=== PATIENT | female | born 1980 | race African-American/Black ===

== ENCOUNTER 2016-12-30 08:51 | Emergency (ER) | payer MEDICAID ==
[~2016-12-30] VITALS: Ht 160 cm; Wt 59.0 kg
[~2016-12-30 08:51] MED LIST: ALBUTEROL SULF8.5 GM INH; AZITHROMYCIN250 MG ORAL; CIPROFLOXACIN500 M2 ORAL; IBUPROFEN600 MG ORAL; NKM; PREDNISONE20 MG ORAL; ROBAXIN500 MG PO; TRAMADOL HCL50 MG ORAL; TYLENOL EXTRA500 MG ORAL
[2016-12-30 09:04] VITALS: BP 113/77
[2016-12-30] MEDS ORDERED: AMOXICILLIN500 MG ORAL (09:12)
[2016-12-30] MEDS ORDERED: IBUPROFEN600 MG ORAL (09:12)
[2016-12-30 09:25] VITALS: BP 113/77
--- NOTE | 2016-12-31 15:17 | Emergency Room Report ---
History of Present Illness General Chief Complaint: Pain Source: Patient Present Illness HPI 36-year-old female presents ED complaining of right-sided mouth pain x 3 days. Denies fevers or chills. Pain is throbbing, 9/10, nonradiating. No other aggravating or relieving factors. Denies any throat pain. Denies cough. No other aggravating or relieving factors. Denies any other associated symptoms Allergies: Coded Allergies: No Known Allergies (Unverified , 12/26/14) Patient History Past Medical History: none Past Surgical History: none Pertinent Family History: none Social History: Denies: alcohol use, drug use, smoking Last Menstrual Period: 11/30/16 Now: No Immunizations: UTD Reviewed Nursing Documentation: PMH: Agreed, PSxH: Agreed Nursing Documentation-PMH Past Medical History: No Stated History Review of Systems All Other Systems: negative except mentioned in HPI Physical Exam Vital Signs Date Time Temp Pulse Resp B/P Pulse Ox O2 Delivery O2 Flow Rate FiO2 12/30/16 08:56 98.1 76 16 113/77 97 Room Air Sp02 EP Interpretation: reviewed, normal General Appearance: no apparent distress, alert, GCS 15, non-toxic Head: normocephalic Eyes: bilateral eye PERRL, bilateral eye normal inspection ENT: hearing grossly normal, no angioedema, normal voice, other - R lower gumline inflammation/swelling Neck: full range of motion, supple/symm/no masses Respiratory: normal inspection Cardiovascular #1: normal inspection Gastrointestinal: normal inspection Rectal: deferred Genitourinary: no CVA tenderness Musculoskeletal: normal inspection Neurologic: alert, oriented x3, responsive, motor strength/tone normal, sensory intact, speech normal Psychiatric: normal inspection Skin: normal inspection Lymphatic: normal inspection Medical Decision Making Diagnostic Impression: Primary Impression: Pain in gums ER Course 36-year-old female presents ED complaining of R sided oral pain. Cracked tooth, dental abscess, cavity Patient placed on stretcher. After initial history, physical exam reveals a young female in mild distress. There is inflammation and swelling to the right lower gumline. No evidence of a tooth abscess. No discharge. Given motrin in ED with pain improved. Diagnosis- pain in gums Stable and discharged to home prescription for Motrin and amoxicillin. Instructed to see dentist as a walk-in this week. Return to ED if symptoms recur or worse Last Vital Signs Date Time Temp Pulse Resp B/P Pulse Ox O2 Delivery O2 Flow Rate FiO2 12/30/16 09:26 98.1 12/30/16 09:25 76 16 113/77 97 Room Air Status: improved Disposition: HOME, SELF-CARE Condition: Stable Scripts Ibuprofen* (MOTRIN*) 600 Mg Tablet 600 MG ORAL Q8H Y for For Pain, #30 TAB 0 Refills Prov: LILLY INMAN M.D. 12/30/16 Amoxicillin* (AMOXIL*) 500 Mg Capsule 500 MG ORAL THREE TIMES A DAY, #21 CAP Prov: LILLY INMAN M.D. 12/30/16 Referrals: [facility] (PCP) Patient Instructions: Gingivitis, [id number] LILLY INMAN M.D. Dec 31, 2016 15:17
== END 2016-12-30 09:30 | disposition home or self-care (01) ==
LOC: EMR 09:15
DX: K13.79 Other lesions of oral mucosa (principal)
CPT/HCPCS: 99284

== ENCOUNTER 2017-04-20 21:36 | Emergency (ER) | payer MEDICAID ==
[~2017-04-20] VITALS: Ht 160 cm; Wt 54.9 kg
[~2017-04-20 21:36] MED LIST changes: +AMOXICILLIN500 MG ORAL
[2017-04-20 21:50] VITALS: BP 153/86
[2017-04-20] MEDS ORDERED: Ketorolac 30mg Inj IV ONE (22:00)
[2017-04-20 22:25] LABS: APPEARANCE,URINE CLEAR; KETONES,URINE NEGATIVE (NEGATIVE); LEUKOCYTE ESTERASE ,URINE 1+ (NEGATIVE); NITRITE,URINE NEGATIVE (NEGATIVE); PH,URINE 8 (4.5-8.0); PROTEIN,URINE NEGATIVE (NEGATIVE); UROBILINOGEN,URINE 4 MG/DL (0.0-1.0)
[2017-04-20 22:31] LABS: BASOPHILS % (AUTO) 1.2 % (0.0-2.0); EOSINOPHILS % (AUTO) 2.8 % (0.0-3.0); LYMPHOCYTES % (AUTO) 9.4 % (20.0-45.0); MEAN CORPUSCULAR HEMOGLOBIN 31.5 PG (27.0-31.0); MEAN CORPUSCULAR HGB CONC 33.4 G/DL (32.0-36.0); MEAN CORPUSCULAR VOLUME 94 FL (80-99); MEAN PLATELET VOLUME 9.1 FL (6.5-10.1); MONOCYTES % (AUTO) 4.9 % (1.0-10.0); NEUTROPHILS % (AUTO) 81.7 % (45.0-75.0); PLATELET COUNT 175 K/UL (150-450); RED BLOOD COUNT 4.46 M/UL (4.20-5.40); RED CELL DISTRIBUTION WIDTH 12.5 % (11.6-14.8); WHITE BLOOD COUNT 9.5 K/UL (4.8-10.8)
[2017-04-20 22:34] LABS: RBC,URINE 0-2 /HPF (0 - 2)
[2017-04-20 22:35] LABS: BACTERIA,URINE FEW /HPF; SQUAMOUS EPITHELIAL CELL,UR FEW /LPF (NONE/OCC)
[2017-04-20 22:42] LABS: ANION GAP 9 (5-15); CALCIUM 10.1 mg/dL (8.6-10.2); CARBON DIOXIDE 27 mEQ/L (20-30); CHLORIDE 104 mEQ/L (98-107); CREATININE 0.9 mg/dL (0.5-0.9); GLOMERULAR FILTRATION RATE > 60 mL/min (>60); HEMOLYSIS 6; POTASSIUM 4.3 mEQ/L (3.4-4.9); SODIUM 140 mEQ/L (135-145)
[2017-04-20] MEDS ORDERED: IBUPROFEN600 MG ORAL (23:04)
--- NOTE | 2017-04-20 23:04 | Emergency Room Report ---
History of Present Illness General Chief Complaint: Chest Pain Source: Patient Present Illness HPI Is a 37-year-old female with no past medical history. She presents with chief complaint of body pain, chest pain, tightness. Subjective fever chills. Onset today. Slight congestion. No cough. No dysuria or frequency. No abdominal pain. Has not anything for this. Allergies: Coded Allergies: No Known Allergies (Unverified , 04/20/17) Patient History Past Medical History: none, see triage record, old chart reviewed Past Surgical History: none Pertinent Family History: none Social History: Denies: smoking Last Menstrual Period: last week Now: No Immunizations: other Reviewed Nursing Documentation: PMH: Agreed, PSxH: Agreed Nursing Documentation-PMH Past Medical History: No History, Except For Hx Hypertension: Yes Review of Systems Constitutional: Reports: chills, fever, malaise Eye: Denies: blurred vision, eye pain ENT: Denies: ear pain, nose congestion, throat swelling Respiratory: Denies: cough, shortness of breath Cardiovascular: Reports: chest pain, Denies: palpitations Gastrointestinal: Denies: abdominal pain, diarrhea, nausea, vomiting Musculoskeletal: Denies: back pain, joint pain Skin: Denies: rash Neurological: Denies: headache, numbness Endocrine: Denies: increased thirst, increased urine Hematologic/Lymphatic: Denies: easy bruising All Other Systems: negative except mentioned in HPI Physical Exam Vital Signs Date Time Temp Pulse Resp B/P Pulse Ox O2 Delivery O2 Flow Rate FiO2 04/20/17 21:39 100.2 95 18 166/91 98 Room Air vitals with fever Sp02 EP Interpretation: reviewed, normal General Appearance: well appearing, no apparent distress, alert Head: normocephalic, atraumatic Eyes: bilateral eye EOMI, bilateral eye PERRL ENT: hearing grossly normal, normal pharynx Neck: full range of motion, supple, no meningismus Respiratory: chest non-tender, lungs clear, normal breath sounds Cardiovascular #1: regular rate, rhythm, no murmur Gastrointestinal: normal bowel sounds, non tender, no mass, no organomegaly, no bruit, non-distended Musculoskeletal: back normal, gait/station normal, normal range of motion Psychiatric: mood/affect normal Skin: warm/dry Medical Decision Making Diagnostic Impression: Primary Impression: Upper respiratory infection Qualified Codes: J06.9 - Acute upper respiratory infection, unspecified; B97.89 - Other viral agents as the cause of diseases classified elsewhere ER Course Patient presents with fever and chest tightness. She's now having congestion and runny nose. This is an early viral illness. No evidence of bacterial infection. Urine is most likely normal. We'll wait for culture before treatment. She fell better now. We will discharge home. Chest X-Ray Diagnostic Results Chest X-Ray Diagnostic Results : Chest X-Ray Ordered: Yes # of Views/Limited/Complete: 1 View Indication: Shortness of Breath EP Interpretation: Yes Interpretation: no consolidation, no effusion, no pneumothorax, no acute cardiopulmonary disease Impression: No acute disease Interpreting ER Provider: Electronically signed by Azam Jacobson MD Last Vital Signs Date Time Temp Pulse Resp B/P Pulse Ox O2 Delivery O2 Flow Rate FiO2 04/20/17 21:50 99.7 92 13 153/86 100 Room Air Status: improved Disposition: HOME, SELF-CARE Condition: Stable Scripts Ibuprofen* (MOTRIN*) 600 Mg Tablet 600 MG ORAL THREE TIMES A DAY, #30 TAB 0 Refills Prov: AZAM JACOBSON M.D. 04/20/17 Referrals: [facility] (PCP) Additional Instructions: Followup with your DrToan in 7 days. Return if symptom worsen. AZAM JACOBSON M.D. Apr 20, 2017 23:04
[2017-04-20 23:10] VITALS: BP 136/76
[2017-04-20 23:15] VITALS: BP 136/76
--- NOTE | 2017-04-21 10:05 | Diagnostic Imaging Report ---
Indication: Chest pain Technique: One view of the chest Comparison: none Findings: Lungs and pleural spaces are clear. Heart size is normal. Impression: No acute process
--- NOTE | 2017-04-21 14:41 | Cardiology Report ---
APPROVED REPORT EKG Measurement Heart [id number] Normal sinus rhythm Normal ECG
== END 2017-04-20 23:15 | disposition home or self-care (01) ==
LOC: EMR 22:17
DX: J06.9 Acute upper respiratory infection, unspecified (principal); I10 Essential (primary) hypertension
CPT/HCPCS: 36415; 71010; 80048; 81001; 81025; 85025; 93005; 96360; 96374; 99284; J1885

== ENCOUNTER 2017-07-16 08:55 | Emergency (ER) | payer MEDICAID ==
[~2017-07-16] VITALS: Ht 160 cm; Wt 57.2 kg
[2017-07-16] MEDS ORDERED: HYDROCORTISONE-30 GM TOPIC (09:11)
[2017-07-16] MEDS ORDERED: BENADRYL25 M3 PO (09:12)
[2017-07-16 09:20] VITALS: BP 136/67
[2017-07-16 09:48] VITALS: BP 136/67
--- NOTE | 2017-07-16 14:05 | Emergency Room Report ---
History of Present Illness General Chief Complaint: Skin Rash/Abscess Source: Patient Present Illness HPI 37-year-old female no significant past medical history presenting with itchy rash to abdomen. Patient states that she first noticed the rash 4 days ago, was scratching it, put Neosporin on it without relief. no New detergent, no insect bites, no rash elsewhere on body Allergies: Coded Allergies: No Known Allergies (Unverified , 04/20/17) Patient History Past Medical History: see triage record Past Surgical History: none Pertinent Family History: none Last Menstrual Period: 05/11/17 Reviewed Nursing Documentation: PMH: Agreed, PSxH: Agreed Nursing Documentation-PMH Past Medical History: No Stated History Hx Hypertension: Yes Review of Systems All Other Systems: negative except mentioned in HPI Physical Exam Vital Signs Date Time Temp Pulse Resp B/P (MAP) Pulse Ox O2 Delivery O2 Flow Rate FiO2 07/16/17 08:59 97.9 83 16 136/67 100 Room Air Sp02 EP Interpretation: reviewed, normal General Appearance: normal inspection, well appearing, no apparent distress, alert, GCS 15, non-toxic Head: normocephalic, atraumatic Eyes: bilateral eye normal inspection, bilateral eye PERRL, bilateral eye EOMI ENT: normal ENT inspection, normal pharynx, normal voice, moist mucus membranes Neck: normal inspection, full range of motion, supple Respiratory: normal inspection, lungs clear, normal breath sounds, no respiratory distress, no retraction, no wheezing, speaking full sentences, chest symmetrical Cardiovascular #1: normal inspection, regular rate, rhythm, no edema, normal capillary refill Cardiovascular #2: 2+ radial (R), 2+ radial (L) Gastrointestinal: normal inspection, non tender, soft, non-distended, no guarding Musculoskeletal: normal inspection, back normal, normal range of motion, non- tender Neurologic: normal inspection, alert, oriented x3, responsive, motor strength/ tone normal, sensory intact, normal gait, speech normal Psychiatric: normal inspection, judgement/insight normal, memory normal Skin: warm/dry, well hydrated, normal turgor, other - erythematous rash noted on abdomen, 2 x 2 centimeters, with excoriation huang, no surrounding cellulitis Medical Decision Making Diagnostic Impression: Primary Impression: Rash and other nonspecific skin eruption ER Course 37-year-old female with rash on abdomen for 4 days DDX: allergic reaction vs. eczema vs. contact dermatitis vs. viral exanthem vs cellulitis Other serious diagnosis such as TSS, meningococcemia, SJS/TEN, DRESS, necrotizing fasiitis are unlikely in this case given benign history/physical Plan: None emergency room ER course: Patient has remained stable in ED Disposition: Patient will be discharged to home. Patient given prescription of her cortisone cream and Benadryl. Strict return precautions discussed with patient such as fever, chills, rapid spread of rash, chest pain, sob, throat swelling, n/v/d. Patient is to follow up with their PMD within 5 days. Patient verbalized understanding and agrees with plan. Please note that this Emergency Department Report was dictated using [employer] processing technologist technology software, occasionally this can lead to erroneous entry secondary to interpretation by the dictation equipment Last Vital Signs Date Time Temp Pulse Resp B/P (MAP) Pulse Ox O2 Delivery O2 Flow Rate FiO2 07/16/17 09:48 97.9 16 136/67 100 Room Air 07/16/17 08:59 83 Disposition: HOME, SELF-CARE Condition: Stable Scripts Diphenhydramine HCl (Benadryl) 25 Mg Capsule 25 MG PO Q6H, #30 CAP 0 Refills Prov: Abel Moran M.D. 07/16/17 Hydrocortisone/Aloe Vera 1%* (HYDROCORTISONE-ALOE 1% CREAM*) Y Cr 1 APPLIC TOPIC Q6H Y for Itching for 14 Days, #30 GM 0 Refills Prov: Abel Moran M.D. 07/16/17 Referrals: [facility] ([facility]P) Patient Instructions: Rash Additional Instructions: Please followup with her private doctor in one week without fail Abel Moran M.D. Jul 16, 2017 14:05
== END 2017-07-16 09:50 | disposition home or self-care (01) ==
LOC: EMR 09:22
DX: R21 Rash and other nonspecific skin eruption (principal); I10 Essential (primary) hypertension
CPT/HCPCS: 99284

== ENCOUNTER 2017-09-25 15:55 | Emergency (ER) | payer MEDICAID ==
[~2017-09-25] VITALS: Ht 160 cm; Wt 52.2 kg
[~2017-09-25 15:55] MED LIST changes: +BENADRYL25 M3 PO; +HYDROCORTISONE-30 GM TOPIC
[2017-09-25 16:01] VITALS: BP 119/75
[2017-09-25] MEDS ORDERED: ALBUTEROL SULF8.5 GM INH (16:58)
[2017-09-25] MEDS ORDERED: PREDNISONE20 MG ORAL (16:58)
[2017-09-25] MEDS ORDERED: PROMETHAZINE-C118 M1 ORAL (16:58)
[2017-09-25 17:05] VITALS: BP 118/68
--- NOTE | 2017-09-25 23:35 | Emergency Room Report ---
History of Present Illness General Chief Complaint: General Complaint Source: Patient Present Illness HPI 37-year-old female presents ED complaining of cough and weakness x2 days. Cough is dry. Patient states she has history of bronchitis. Denies fevers or chills. Denies chest pain. No other aggravating or leading factors. Denies any other associated symptom Allergies: Coded Allergies: No Known Allergies (Unverified , 04/20/17) Patient History Past Medical History: HTN Past Surgical History: none Pertinent Family History: none Social History: Denies: smoking, alcohol use, drug use Last Menstrual Period: 08/02/17 Now: No Immunizations: UTD Reviewed Nursing Documentation: PMH: Agreed, PSxH: Agreed Nursing Documentation-PMH Past Medical History: No Stated History Hx Hypertension: Yes Review of Systems All Other Systems: negative except mentioned in HPI Physical Exam Vital Signs Date Time Temp Pulse Resp B/P (MAP) Pulse Ox O2 Delivery O2 Flow Rate FiO2 09/25/17 16:01 98.4 108 20 119/75 97 Room Air Sp02 EP Interpretation: reviewed, normal General Appearance: no apparent distress, alert, GCS 15, non-toxic Head: normocephalic, atraumatic Eyes: bilateral eye normal inspection, bilateral eye PERRL ENT: hearing grossly normal, normal pharynx, no angioedema, normal voice Neck: full range of motion, supple/symm/no masses Respiratory: chest non-tender, lungs clear, normal breath sounds, speaking full sentences Cardiovascular #1: regular rate, rhythm, no edema Cardiovascular #2: 2+ carotid (R), 2+ carotid (L), 2+ radial (R), 2+ radial (L) , 2+ dorsalis pedis (R), 2+ dorsalis pedis (L) Gastrointestinal: normal bowel sounds, non tender, soft, non-distended, no guarding, no rebound Rectal: deferred Genitourinary: normal inspection, no CVA tenderness Musculoskeletal: back normal, gait/station normal, normal range of motion, non- tender Neurologic: alert, oriented x3, responsive, motor strength/tone normal, sensory intact, speech normal Psychiatric: judgement/insight normal, memory normal, mood/affect normal, no suicidal/homicidal ideation Reflexes: 3+ bicep (R), 3+ bicep (L), 3+ tricep (R), 3+ tricep (L), 3+ knee (R) , 3+ knee (L) Skin: normal color, no rash, warm/dry, well hydrated Lymphatic: no adenopathy Medical Decision Making Diagnostic Impression: Primary Impression: Bronchitis with bronchospasm ER Course Hospital Course 37-year-old female presents to ED complaining of cough, weakness Differential diagnoses include: URI, pharyngitis, otitis media, asthma Clinical course Patient placed on stretcher. After initial history, physical exam reveals a female in no acute distress. Bilateral TM unremarkable. No pharyngeal erythema. No tonsillar exudates. No lymphadenopathy. lungs clear. abdomen soft. Clinical findings consistent with bronchitis. Reassurance given. treatment is supportive therapy Diagnosis - bronchitis Stable and discharged home with Rx promethazine/codeine, albuterol, prednisone. Instructed to followup with PMD. Return to ED if symptoms recur or worsen Last Vital Signs Date Time Temp Pulse Resp B/P (MAP) Pulse Ox O2 Delivery O2 Flow Rate FiO2 09/25/17 17:05 78 18 118/68 99 Room Air 09/25/17 16:01 98.4 Status: improved Disposition: HOME, SELF-CARE Condition: Stable Scripts Codeine/Promethazine Hcl* (PROMETHAZINE-CODEINE SYRUP*) 118 Ml Syrup 5 ML ORAL Q6H Y for For Cough, #118 ML 0 Refills Prov: LILLY INMAN M.D. 09/25/17 Prednisone* (PREDNISONE*) 20 Mg Tablet 40 MG ORAL DAILY for 5 Days, TAB Prov: LILLY INMAN M.D. 09/25/17 Albuterol Sulfate* (ALBUTEROL SULFATE MDI*) 8.5 Gm Hfa.aer.ad 2 PUFF INH Q6H, #1 EA 0 Refills Prov: LILLY INMAN M.D. 09/25/17 Referrals: [facility] (PCP) Patient Instructions: Acute Bronchitis, [id number] LILLY INMAN M.D. Sep 25, 2017 23:35
== END 2017-09-25 17:06 | disposition home or self-care (01) ==
LOC: EMR 16:38
DX: J40 Bronchitis, not specified as acute or chronic (principal); R53.1 Weakness; I10 Essential (primary) hypertension
CPT/HCPCS: 99284

== ENCOUNTER 2018-02-10 02:53 | Emergency (ER) | payer MEDICAID ==
[~2018-02-10] VITALS: Ht 160 cm; Wt 54.9 kg
[~2018-02-10 02:53] MED LIST changes: +PROMETHAZINE-C118 M1 ORAL
[2018-02-10 03:15] VITALS: BP 138/80
[2018-02-10] MEDS ORDERED: Mylanta II UD 30ml ORAL ONE (03:15)
[2018-02-10 03:16] LABS: APPEARANCE,URINE CLEAR; BILIRUBIN, URINE NEGATIVE (NEGATIVE); GLUCOSE, URINE (UA) NEGATIVE (NEGATIVE); KETONES,URINE NEGATIVE (NEGATIVE); LEUKOCYTE ESTERASE ,URINE 1+ (NEGATIVE); NITRITE,URINE NEGATIVE (NEGATIVE); PH,URINE 5 (4.5-8.0); PROTEIN,URINE 2+ (NEGATIVE); UROBILINOGEN,URINE 1 MG/DL (0.0-1.0)
[2018-02-10 03:20] LABS: COLOR,URINE YELLOW
[2018-02-10] MEDS ORDERED: Sodium Chloride 500ML 500 ML IV ONE (03:43)
[2018-02-10] MEDS ORDERED: Isovue-300 100ml vial INJ PRN (03:45)
[2018-02-10] MEDS ORDERED: Morphine Sulfate 4mg/ml Inj IVP ONE (03:45)
--- NOTE | 2018-02-10 03:50 | Emergency Room Report ---
History of Present Illness General Chief Complaint: Abdominal Pain Source: Patient Present Illness HPI 2-year-old female no medical problems no surgeries, reports lower abdominal pain for 7 days, with constipation, no fever, no nausea no vomiting, pain is crampy and intermittent, but constant all day today Denies urinary symptoms denies gynecologic problems Has tried a suppository as well as prune juice and stool softeners without relief Allergies: Coded Allergies: No Known Allergies (Unverified , 04/20/17) Patient History Past Medical History: see triage record Last Menstrual Period: Last month Now: No Reviewed Nursing Documentation: PMH: Agreed; PSxH: Agreed Nursing Documentation-PMH Hx Hypertension: Yes Review of Systems All Other Systems: negative except mentioned in HPI Physical Exam Vital Signs Date Time Temp Pulse Resp B/P (MAP) Pulse Ox O2 Delivery O2 Flow Rate FiO2 02/10/18 02:56 98.0 75 18 141/88 98 Room Air 98.1 Sp02 EP Interpretation: reviewed, normal General Appearance: no apparent distress, alert, non-toxic Head: normocephalic Eyes: bilateral eye normal inspection, bilateral eye PERRL, bilateral eye EOMI ENT: normal ENT inspection, hearing grossly normal, normal pharynx, no angioedema, normal voice, moist mucus membranes Neck: normal inspection, full range of motion, supple, supple/symm/no masses Respiratory: chest non-tender, lungs clear, normal breath sounds, chest symmetrical, palpation of chest normal Cardiovascular #1: normal peripheral pulses, regular rate, rhythm Cardiovascular #2: 2+ radial (R), 2+ radial (L) Gastrointestinal: normal inspection, soft, no mass, no guarding, no rebound, tenderness - Positive McBurney's point right lower quadrant tenderness Rectal: deferred Genitourinary: normal inspection, no CVA tenderness Musculoskeletal: back normal, gait/station normal, normal range of motion, non- tender, no calf tenderness Neurologic: alert, responsive, wig sales consultant III-XII nml as tested, motor strength/tone normal, sensory intact, speech normal Psychiatric: judgement/insight normal, memory normal, mood/affect normal Skin: normal color, no rash, warm/dry, normal turgor Lymphatic: no adenopathy Medical Decision Making Diagnostic Impression: Primary Impression: Abdominal pain ER Course Patient has had an unremarkable workup, pain for one week intermittently, do not suspect anything concerning in terms of gynecologic pathology, she was discharged with a prescription for Bentyl to take as needed for pain as well as MiraLAX to add to her bowel regimen CT/MRI/US Diagnostic Results CT/MRI/US Diagnostic Results : Imaging Test Ordered: ct abd/pelvis Impression CT scan showed normal appendix, no obstruction, no free air, fat-containing umbilical hernia Last Vital Signs Date Time Temp Pulse Resp B/P (MAP) Pulse Ox O2 Delivery O2 Flow Rate FiO2 02/10/18 03:15 98.0 18 138/80 98 Room Air 98.0 02/10/18 02:56 75 Status: improved Disposition: HOME, SELF-CARE Condition: Stable Referrals: [facility] (PCP) JULIA DEVRIES M.D February 10, 2018 03:50
[2018-02-10 04:02] LABS: EOSINOPHILS % (AUTO) 3.5 % (0.0-3.0); HEMATOCRIT 43.5 % (37.0-47.0); HEMOGLOBIN 14.3 G/DL (12.0-16.0); LYMPHOCYTES % (AUTO) 23.4 % (20.0-45.0); MEAN CORPUSCULAR VOLUME 88 FL (80-99); MONOCYTES % (AUTO) 4.8 % (1.0-10.0); NEUTROPHILS % (AUTO) 67.2 % (45.0-75.0); PLATELET COUNT 207 K/UL (150-450); RED BLOOD COUNT 4.92 M/UL (4.20-5.40); WHITE BLOOD COUNT 11.1 K/UL (4.8-10.8)
[2018-02-10 04:06] LABS: ANION GAP 10 mmol/L (5-15); BLOOD UREA NITROGEN 12 mg/dL (7-18); CALCIUM 9.4 MG/DL (8.5-10.1); CARBON DIOXIDE 26 MMOL/L (21-32); CHLORIDE 106 MMOL/L (98-107); CREATININE 0.9 MG/DL (0.55-1.30); POTASSIUM 3.6 MMOL/L (3.5-5.1); SODIUM 142 MMOL/L (136-145)
[2018-02-10 04:11] LABS: ALANINE AMINOTRANSFERASE 21 U/L (12-78); ALBUMIN 3.5 G/DL (3.4-5.0); ALKALINE PHOSPHATASE 94 U/L (46-116); ASPARTATE AMINO TRANSFERASE 13 U/L (15-37); BILIRUBIN,TOTAL 0.3 MG/DL (0.2-1.0)
[2018-02-10 05:08] VITALS: BP 132/78
[2018-02-10] MEDS ORDERED: DICYCLOMINE HCL10 MG PO (06:08)
[2018-02-10] MEDS ORDERED: MIRALAX17 G2 ORAL (06:08)
[2018-02-10 06:15] VITALS: BP 128/80
[2018-02-10 06:16] VITALS: BP 128/80
--- NOTE | 2018-02-10 12:53 | Diagnostic Imaging Report ---
Clinical Indication: Abdominal pain, constipation for 7 days Technique: No oral contrast utilized, per emergency room physician request IV administration nonionic contrast. Venous phase spiral acquisition obtained through the abdomen and pelvis. Multiplanar reconstructions were generated. Total dose length product 609.36 mGycm. CTDIvol(s) 12.1 mGy. Dose reduction achieved using automated exposure control Comparison: 01/13/2015 Findings: Normal appendix. 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 No small bowel distention. No evidence of diverticulosis or diverticulitis. Distal esophagus, stomach, duodenum are all unremarkable. The liver, gallbladder, bile ducts, pancreas, spleen are unremarkable. There is a heterogeneous left adrenal mass measuring 2.3 x 2 cm, in retrospect evident previously but more prominent currently. This demonstrates nonspecific attenuation. The kidneys are unremarkable. No retroperitoneal or mesenteric mass or adenopathy. The uterus is somewhat slightly prominent heterogeneous uterus, retroflexed. No adnexal mass. Probable small collapsed follicle is seen on the left. The included lung bases demonstrate minimal posterior dependent atelectatic changes. The bones are unremarkable. Impression: No acute abnormality LE Rectus tendon diastasis again demonstrated Prominent heterogeneous uterus, also previously demonstrated Probable collapsed left ovarian follicle/corpus luteum The above findings are in agreement with the [facility] preliminary report 2.3 x 2 cm left adrenal mass. In retrospect likely evident on prior exam but appears somewhat more prominent currently. Recommend adrenal protocol MRI for further evaluation. Note that this was not described in the [facility] preliminary report. Findings phoned to Dr. Plascencia at the time of interpretation The CT scanner at [facility] is accredited by the [employer] and the scans are performed using protocols designed to limit radiation exposure to as low as reasonably achievable to attain images of sufficient resolution adequate for diagnostic evaluation.
== END 2018-02-10 06:16 | disposition home or self-care (01) ==
LOC: EMR 03:11
DX: R10.30 Lower abdominal pain, unspecified (principal); K59.00 Constipation, unspecified; I10 Essential (primary) hypertension; R19.09 Other intra-abdominal and pelvic swelling, mass and lump
CPT/HCPCS: 36415; 74177; 80053; 81003; 83690; 84702; 85025; 96361; 96374; 96375; 99284; J2270; J2405; J7040; Q9967

== ENCOUNTER 2018-11-07 16:09 | Emergency (ER) | payer MEDICAID ==
[~2018-11-07] VITALS: Ht 160 cm; Wt 59.0 kg
[~2018-11-07 16:09] MED LIST changes: +DICYCLOMINE HCL10 MG PO; +MIRALAX17 G2 ORAL
[2018-11-07 16:38] VITALS: BP 116/76
--- NOTE | 2018-11-07 16:38 | NUR ---
ED Nurse Note: A/OX4. AMBULATED IN TO ER DUE TO CHEST PAIN 04/05; NONRADIATING, LAST 20SEC AND WORSEN WITH MOVEMENT. NO SOB. DENIES N/V
--- NOTE | 2018-11-07 17:07 | Emergency Room Report ---
History of Present Illness General Chief Complaint: Chest Pain Source: Patient Present Illness HPI 38-year-old female patient presents the ER complaining of chest pain and left ear pain times 1 day. Denies ear drainage. Denies using Q-tips. Denies cough. Denies recent injury or trauma. Reports sore throat during this time. Reports sternal chest pain. Reports intermittent pain . Denies recent travel. Denies abdominal pain. Denies vomiting or diarrhea. Denies history of heart attack or asthma. Denies shortness of breath. Reports that she has a history of high blood pressure however states she is not receiving treatment because "her blood pressure is not high enough" to require treatment. States she is currently being seen by her primary care provider for further treatment and evaluation. Denies tooth pain. Allergies: Coded Allergies: No Known Allergies (Unverified , 04/20/17) Patient History Past Medical History: see triage record Last Menstrual Period: nov 02 Now: No Reviewed Nursing Documentation: PMH: Agreed; PSxH: Agreed Nursing Documentation-PMH Past Medical History: No History, Except For Hx Hypertension: Yes Review of Systems All Other Systems: negative except mentioned in HPI Physical Exam Vital Signs Date Time Temp Pulse Resp B/P (MAP) Pulse Ox O2 Delivery O2 Flow Rate FiO2 11/07/18 16:24 99.0 85 20 116/76 97 Room Air Sp02 EP Interpretation: reviewed, normal General Appearance: well appearing, no apparent distress, alert, GCS 15, non- toxic Head: normocephalic, atraumatic Eyes: bilateral eye normal inspection, bilateral eye PERRL ENT: hearing grossly normal, normal pharynx, no angioedema, normal voice, TMs + canals normal - right, uvula midline, moist mucus membranes, other - Pain with left ear pulling, mild erythema in ear canal, mild edema, TM normal, no effusion; uvula midline Neck: full range of motion Respiratory: lungs clear, normal breath sounds, no rhonchi, no respiratory distress, no accessory muscle use, no wheezing, speaking full sentences, other - chest TTP, no flail chest, no deformity Cardiovascular #1: regular rate, rhythm, no edema Genitourinary: no CVA tenderness Neurologic: alert, oriented x3, responsive, motor strength/tone normal, sensory intact Psychiatric: mood/affect normal Skin: no rash Medical Decision Making PA Attestation Dr. Quezada is my supervising Physician whom patient management has been discussed with. Diagnostic Impression: Primary Impression: Nonspecific chest pain Additional Impression: Otitis externa ER Course Pt presents to ED c/o chest pain and ear pain and sore throat. DDX considered but are not limited to influenza, viral URI, pneumonia, costochondritis, pericarditis, MO, CHF, pneumothorax, rhinitis, sinusitis, otitis media, otitis externa, cellulitis, mastoiditis, cerumen impaction. Low suspicion for mastoiditis, no swelling or erythema noted posterior to ear, no TTP. Low suspicion for PE per well's criteria. On PE, chest is TTP; chest pain likely musculoskeletal in nature, does not require cardiac workup at this time. Patient instructed to take NSAIDs as needed for pain symptoms. VITAL SIGNS are WNL, patient is afebrile. ER COURSE: Provided with pain medication. Lungs clear to auscultation, no wheezes, rhonci or rales. patient afebrile. Does not require breathing treatment at this time. CXR negative for acute disease. EKG shows no ST elevation or afib. EKG reviewed by Dr. Quezada. Pain reproducible, chest TTP, CXR and EKG unremarkable, low suspicion for cardiac etiology of symptoms, likely MSK in nature. Advised patient to followup with PCP and discuss referral to cardiology for stress testing and further evaluation. Pain with left-sided ear pulling, mild erythema and edema noted in ear canal, TM normal, likely otitis externa. Will provide patient with eardrops for infection. Advised to follow-up with primary care provider. Symptomatic treatment. Take Tylenol for pain symptoms. drink plenty of fluids. Followup with PCP for further treatment and/or referral as needed. ER precautions given. DISCHARGE: -Rx provided for Neomycin/polmyxin B Rx provided for Tylenol At this time pt is stable for d/c to home. Patient is resting comfortably, in no acute distress, nontoxic appearing. Patient to take medications as instructed Will provide with patient care instructions and any necessary prescriptions. Care plan and follow-up instructions provided. Patient instructed to follow-up with primary care provider in 3 - 5 days. Patient questions asked and answered. Patient reports understanding and agreement to treatment plan. ER precautions given. Patient instructed to return to ER immediately for any new or worsening of symptoms including but not limited to increasing SOB, persistent fever, intractable vomiting. - Please note that this Emergency Department Report was dictated using [employer]ine[employer] gater technology software, occasionally this can lead to erroneous entry secondary to interpretation by the dictation equipment. EKG Diagnostic Results Rate: normal Rhythm: NSR ST Segments: no acute changes ASA given to the pt in ED: No PA Scribe Text Anam Gonzales PA-C Rhythm Strip Diag. Results EP Interpretation: yes Rate: 70 Rhythm: NSR, no PVC's, no ectopy PA Scribe Text Anam Gonzales PA-C Chest X-Ray Diagnostic Results Chest X-Ray Diagnostic Results : Chest X-Ray Ordered: Yes # of Views/Limited/Complete: 1 View Indication: Chest Pain EP Interpretation: Yes PA Xray: Interpretation reviewed, by supervising MD, and agrees with findings. Interpretation: no consolidation, no effusion, no pneumothorax, no acute cardiopulmonary disease Impression: No acute disease PA Scribe Text Anam Gonzales PA-C Last Vital Signs Date Time Temp Pulse Resp B/P (MAP) Pulse Ox O2 Delivery O2 Flow Rate FiO2 11/07/18 16:38 85 20 Room Air 11/07/18 16:38 99.0 116/76 97 Disposition: HOME, SELF-CARE Condition: Stable Scripts Acetaminophen* (TYLENOL EXTRA STRENGTH*) 500 Mg Tablet 500 MG ORAL Q8H PRN for Prn Headache/Temp > 101, #30 TAB 0 Refills Prov: Chapito Gonzales 11/07/18 Neomycin/Polymyxin B Sulf/Hc* (CORTISPORIN EAR SOLUTION*) 10 Ml Solution 4 DROP LEFT EAR QID, #10 ML 0 Refills Prov: Chapito Gonzales 11/07/18 Patient Instructions: Nonspecific Chest Pain, Otitis Externa, [id number] Additional Instructions: Followup with primary care provider in 3 -5 days. Discussed referral to cardiology for cardiac stress testing. Take Tylenol for pain. Do not use Q-tips. Follow-up with ENT specialist. Take medications as directed. Patient questions asked and answered. ER precautions given, patient instructed to return to ER immediately for any new or worsening of symptoms. Chapito Gonzales Nov 07, 2018 17:07
[2018-11-07] MEDS ORDERED: CORTISPORIN EAR10 ML LEFT EAR (17:55)
[2018-11-07] MEDS ORDERED: TYLENOL EXTRA500 MG ORAL (17:55)
[2018-11-07 18:00] VITALS: BP 116/76
--- NOTE | 2018-11-07 18:01 | NUR ---
ED Nurse Note: A/Ox4. Pt is cleared by ALBINA Mendieta. DC instruction and prescriptions given, pt verbalized understanding. IV/ID wristband removed. All belongings taken by pt. Denies pain at this time. Pt ambulated out of ER with steady gait.
--- NOTE | 2018-11-07 18:01 | Diagnostic Imaging Report ---
Indication: Chest pain Technique: One view of the chest Comparison: 04/20/2017 Findings: Lungs and pleural spaces are clear. Heart size is normal. No significant interim change Impression: No acute process
== END 2018-11-07 18:00 | disposition home or self-care (01) ==
LOC: EMR 17:03
DX: R07.9 Chest pain, unspecified (principal); I10 Essential (primary) hypertension; H60.91 Unspecified otitis externa, right ear
CPT/HCPCS: 71045; 99283

== ENCOUNTER 2019-05-18 09:19 | Emergency (ER) | payer MEDICAID ==
[~2019-05-18] VITALS: Ht 157.5 cm; Wt 65.8 kg
[~2019-05-18 09:19] MED LIST changes: +CORTISPORIN EAR10 ML LEFT EAR
[2019-05-18] MEDS ORDERED: NKM (09:24)
--- NOTE | 2019-05-18 09:27 | NUR ---
ED Nurse Note: PT WALKED IN TO ER TODAY FROM HOME. AOX4. PT C/O WORSENING LEFT INDEX FINGER SWELLING AND PAIN SINCE YESTERDAY MORNING AROUND 1100. PT DENIES ANY INJURY OR TRAUMA. FULL ROM OF DIGIT, CIRCULATION AND SENSATION INTACT, CAP REFILL <2 SECONDS, MUSCLE STRENGTH 5/5 OF HAND.
[2019-05-18 09:28] VITALS: BP 126/84
[2019-05-18] MEDS ORDERED: Ketorolac 60mg Inj IM ONE (10:15)
--- NOTE | 2019-05-18 10:18 | Emergency Room Report ---
History of Present Illness General Chief Complaint: Pain Source: Patient Present Illness HPI This patient states that she noted yesterday that her left index finger was swollen. She denies trauma or injury. She denies laceration. She states that the pain is worse with movement. She denies fever or chills. She did not see any type of insect bite. She has no other lesions. She has no other complaints. Allergies: Coded Allergies: No Known Allergies (Unverified , 04/20/17) Patient History Past Medical History: see triage record, HTN Social History: Denies: smoking, alcohol use, drug use Last Menstrual Period: 05/09/19 Reviewed Nursing Documentation: PMH: Agreed; PSxH: Agreed Nursing Documentation-PMH Past Medical History: No Stated History Hx Hypertension: Yes Review of Systems All Other Systems: negative except mentioned in HPI Physical Exam Vital Signs Date Time Temp Pulse Resp B/P (MAP) Pulse Ox O2 Delivery O2 Flow Rate FiO2 05/18/19 09:21 98.4 77 18 130/90 (103) 96 Room Air Sp02 EP Interpretation: reviewed, normal General Appearance: no apparent distress, alert, GCS 15, non-toxic Head: normocephalic, atraumatic Eyes: bilateral eye normal inspection, bilateral eye PERRL ENT: hearing grossly normal, normal pharynx, no angioedema, normal voice Neck: full range of motion, supple/symm/no masses Respiratory: no respiratory distress, no retraction, no accessory muscle use, speaking full sentences Rectal: deferred Musculoskeletal: back normal, gait/station normal, normal range of motion, swelling - Clear swelling of L. index finger. minimal erythema. ? insect bite giancarlo. No fluctuance palpated. No deformity. Normal ROM. Neurologic: alert, oriented x3, responsive, motor strength/tone normal, sensory intact, speech normal Psychiatric: judgement/insight normal, memory normal, mood/affect normal, no suicidal/homicidal ideation Skin: other - See above in MSK exam. Medical Decision Making Diagnostic Impression: Primary Impression: Swelling of finger of right hand Additional Impression: Insect bite ER Course This patient has findings on exam I suspect is secondary to a local reaction to an insect bite. There is very minimal erythema. There is significant swelling. I do not suspect fracture based on no history of trauma, therefore, I did not obtain imaging. I will treat as both a local allergic reaction and a possible early infection. At this time, there is no emergency medical condition. The patient is given close return precautions and follow-up instructions. Last Vital Signs Date Time Temp Pulse Resp B/P (MAP) Pulse Ox O2 Delivery O2 Flow Rate FiO2 05/18/19 09:28 98.2 74 17 126/84 99 Room Air Status: improved Disposition: HOME, SELF-CARE Condition: Improved Referrals: NON PHYSICIAN (PCP) Frances Foote DO May 18, 2019 10:18
[2019-05-18] MEDS ORDERED: BENADRYL25 MG ORAL (10:20)
[2019-05-18] MEDS ORDERED: IBUPROFEN600 MG ORAL (10:20)
[2019-05-18] MEDS ORDERED: DOXYCYCLINE MO100 MG ORAL (10:20)
--- NOTE | 2019-05-18 10:24 | NUR ---
ED Nurse Note: PT SITTING PEACEFULLY IN BED IN NAD. AOX4. PRESCRIPTIONS AND DISCHARGE PAPERWORK EXPLAINED TO PT. PT VERBALIZES UNDERSTANDING AND ALL QUESTIONS ANSWERED. PRESCRIPTIONS SENT ELECTRONICALLY TO PT'S PHARMACY. DISCHARGE PAPERWORK GIVEN TO PT AND ID WRISTBAND REMOVED. PT WALKED OUT OF ER WITH STEADY GAIT AND ALL BELONGINGS.
[2019-05-18 10:25] VITALS: BP 122/82
== END 2019-05-18 10:28 | disposition home or self-care (01) ==
LOC: EMR 09:45
DX: S60.461A Insect bite (nonvenomous) of left index finger, initial encounter (principal); M79.89 Other specified soft tissue disorders; I10 Essential (primary) hypertension; W57.XXXA Bitten or stung by nonvenomous insect and other nonvenomous arthropods, initial encounter; Y92.9 Unspecified place or not applicable
CPT/HCPCS: 96372; 99283

== ENCOUNTER 2019-07-09 01:34 | Emergency (ER) | payer MEDICAID ==
[~2019-07-09] VITALS: Ht 160 cm; Wt 67.1 kg
[~2019-07-09 01:34] MED LIST changes: +BENADRYL25 MG ORAL; +DOXYCYCLINE MO100 MG ORAL
--- NOTE | 2019-07-09 01:45 | NUR ---
ED Nurse Note: Recieved pt on ardharharshal from home, here with c/o right ankle swelling and pain, thinks is insect bite, pt rates pain at 10/10 and states she can not walk, pt assisted to radharharshal, denies any other complaints or discomforts, no cp, no sob, will resume care as ordered.
[2019-07-09] MEDS ORDERED: Cephalexin 500mg cap ORAL ONE (02:00)
[2019-07-09] MEDS ORDERED: Acetaminophen 500mg (ES) tab ORAL ONE (02:00)
[2019-07-09 02:05] VITALS: BP 134/91
--- NOTE | 2019-07-09 02:05 | NUR ---
ER DISCHARGE NOTE: Patient is cleared to be discharged per ERMD, pt is aox4, on room air, with stable vital signs. pt was given dc and prescription instructions, pt was able to verbalize understanding, pt id band removed without complications. pt is able to ambulate with steady gait. pt took all belongings. pt given crutches with crutch training, pt return demonstrates proper use and verbalizes safety measures, pt leaving via uber, nad noted during d/c to home.
[2019-07-09] MEDS ORDERED: CEPHALEXIN500 MG ORAL (02:08)
[2019-07-09] MEDS ORDERED: TYLENOL EXTRA500 MG ORAL (02:08)
--- NOTE | 2019-07-09 03:36 | Emergency Room Report ---
History of Present Illness General Chief Complaint: Edema Source: Patient Present Illness HPI 39-year-old female presents ED for evaluation. Complaining of right ankle pain and swelling. Started tonight. States that she was scratching her ankle and then suddenly she noticed redness and swelling. Throbbing, 8 out of 10, nonradiating. Difficult to bear weight. Denies any recent injury. States it feels warm. Denies fevers or chills. No other aggravating relieving factors. Denies any other associated symptoms Allergies: Coded Allergies: No Known Allergies (Unverified , 04/20/17) Patient History Past Medical History: HTN Past Surgical History: none Pertinent Family History: none Social History: Denies: smoking, alcohol use, drug use Last Menstrual Period: 07/08/19 Now: No Immunizations: UTD Reviewed Nursing Documentation: PMH: Agreed; PSxH: Agreed Nursing Documentation-PMH Past Medical History: No History, Except For Hx Hypertension: Yes Review of Systems All Other Systems: negative except mentioned in HPI Physical Exam Vital Signs Date Time Temp Pulse Resp B/P (MAP) Pulse Ox O2 Delivery O2 Flow Rate FiO2 07/09/19 01:38 98.1 87 14 134/91 (105) 98 Room Air Sp02 EP Interpretation: reviewed, normal General Appearance: no apparent distress, alert, GCS 15, non-toxic Head: normocephalic Eyes: bilateral eye normal inspection, bilateral eye PERRL ENT: normal ENT inspection Neck: normal inspection Respiratory: normal inspection Cardiovascular #1: normal inspection Gastrointestinal: normal inspection Rectal: deferred Genitourinary: no CVA tenderness Musculoskeletal: back normal, gait/station normal, normal range of motion, swelling - R ankle, tender - R ankle Medical Decision Making Diagnostic Impression: Primary Impression: Cellulitis Qualified Codes: L03.115 - Cellulitis of right lower limb ER Course Hospital Course 39-year-old female presents to ED with redness, swelling to right ankle Differential diagnoses include: Cellulitis, dermatitis, insect bite, abscess Clinical course Patient placed on stretcher. After initial history, physical exam reveals a female in no acute distress. On exam there is a site for erythema and induration to the right ankle. There is no fluctuance. Full range of motion is noted in the right ankleand there is no concern for any signs of infection to the joint. given Tylenol, antibiotics here. discussed findings with patient. Afebrile, nontoxic-appearing. Will discharge with prescription for antibiotics. Recommend warm compresses. Will provide crutches. Safe for discharge with close outpatient follow-up. States she has a PMD Diagnosis - cellulitis stable and discharged to home with prescription for keflex, tylenol. warm compresses. Instructed to followup with PMD. Instructed return to ED if symptoms recur or worsen Last Vital Signs Date Time Temp Pulse Resp B/P (MAP) Pulse Ox O2 Delivery O2 Flow Rate FiO2 07/09/19 02:05 98.1 14 134/91 98 Room Air 07/09/19 01:45 87 Status: improved Disposition: HOME, SELF-CARE Condition: Stable Scripts Cephalexin* (KEFLEX*) 500 Mg Capsule 500 MG ORAL EVERY 6 HOURS for 7 Days, CAP Prov: Haris Quezada MD 07/09/19 Acetaminophen* (TYLENOL EXTRA STRENGTH*) 500 Mg Tablet 500 MG ORAL Q8H PRN for Prn Headache/Temp > 101, #30 TAB 0 Refills Prov: Haris Quezada MD 07/09/19 Patient Instructions: Cellulitis, [id number] Haris Quezada MD Jul 09, 2019 03:36
== END 2019-07-09 02:05 | disposition home or self-care (01) ==
LOC: EMR 01:53
DX: L03.115 Cellulitis of right lower limb (principal); I10 Essential (primary) hypertension
CPT/HCPCS: 99282

== ENCOUNTER 2019-12-03 00:08 | Emergency (ER) | payer MEDICAID ==
[~2019-12-03] VITALS: Ht 152.4 cm; Wt 68.0 kg
[~2019-12-03 00:08] MED LIST changes: +CEPHALEXIN500 MG ORAL
--- NOTE | 2019-12-03 01:05 | Emergency Room Report ---
History of Present Illness General Chief Complaint: Upper Respiratory Illness Source: Patient Present Illness HPI Patient is a 39-year-old female presents after increased cough and difficulty with breathing. She reports having symptoms for approximately 2 weeks. Reports having productive cough with greenish sputum. Reports being a former smoker. Denies any vomiting or diarrhea. She has been taking [id number] cough medications. reports having some increased sinus pressure. Allergies: Coded Allergies: No Known Allergies (Unverified , 04/20/17) Patient History Past Medical History: see triage record Reviewed Nursing Documentation: PMH: Agreed; PSxH: Agreed Nursing Documentation-PMH Hx Hypertension: Yes Review of Systems All Other Systems: negative except mentioned in HPI Physical Exam Vital Signs Date Time Temp Pulse Resp B/P (MAP) Pulse Ox O2 Delivery O2 Flow Rate FiO2 12/03/19 00:14 97.9 106 18 123/70 (87) 96 Room Air Sp02 EP Interpretation: reviewed, normal General Appearance: normal inspection, alert, GCS 15 Head: atraumatic ENT: normal ENT inspection, hearing grossly normal, normal voice Neck: normal inspection, full range of motion, supple, no bony tend Respiratory: normal inspection, normal breath sounds, no respiratory distress, no retraction, no wheezing Cardiovascular #1: regular rate, rhythm, no edema Gastrointestinal: normal inspection, normal bowel sounds, non tender, soft, no guarding, no hernia Genitourinary: no CVA tenderness Musculoskeletal: normal inspection, back normal, normal range of motion Neurologic: alert, motor strength/tone normal, network planner III-XII nml as tested, oriented x3, responsive, speech normal, normal inspection Psychiatric: normal inspection, judgement/insight normal, mood/affect normal Medical Decision Making Diagnostic Impression: Primary Impression: Sinusitis ER Course Patient presented for increased cough. Differential diagnosis include was not limited to sinusitis, pneumonia, influenza, viral respiratory infection among others. Chest x-ray was ordered due to patient's symptoms. Chest x-ray read by radiology showed no evidence of acute infiltrate. Influenza study was negative. Patient was given prescription for oral antibiotics. She is advised to self isolate and was advised to remain off work. The patient is advised to follow up with primary care doctor in 1-2 days. Patient is advised to return if any increase shortness of breath, worsening condition or if any changes in status that are concerning. This report is dictated with [employer] ophthalmic aide software which may occasionally lead to discrepancies related to use of this software. Labs Test 12/03/19 01:10 Urine Color Yellow Urine Appearance Clear Urine pH 5 (4.5-8.0) Urine Specific [place] 1.025 (1.005-1.035) Urine Protein 1+ (NEGATIVE) Urine Glucose (UA) Negative (NEGATIVE) Urine Ketones 1+ (NEGATIVE) Urine Blood Negative (NEGATIVE) Urine Nitrite Negative (NEGATIVE) Urine Bilirubin Negative (NEGATIVE) Urine Urobilinogen 1 MG/DL (0.0-1.0) Urine Leukocyte Esterase 1+ (NEGATIVE) Urine RBC 0-2 /HPF (0 - 2) Urine WBC 2-4 /HPF (0 - 2) Urine Squamous Epithelial Cells Few /LPF (NONE/OCC) Urine Bacteria Occasional /HPF (NONE) Urine Mucus Moderate /LPF (NONE/OCC) Urine HCG, Qualitative Negative (NEGATIVE) Last Vital Signs Date Time Temp Pulse Resp B/P (MAP) Pulse Ox O2 Delivery O2 Flow Rate FiO2 12/03/19 00:14 97.9 106 18 123/70 (87) 96 Room Air Status: improved Disposition: HOME, SELF-CARE Condition: Stable Scripts Guaifenesin/Dextromethorphan* (Guaifenesin Dm Syrup*) 5 Ml Syrup 5 ML ORAL Q6H PRN for FOR COUGH, #118 ML Prov: Sam Cueto MD 12/03/19 Amoxicillin (AMOXICILLIN) 500 Mg Tablet 500 MG PO THREE TIMES A DAY, #30 TAB Prov: Sam Cueto MD 12/03/19 Sam Cueto MD Dec 03, 2019 01:05
[2019-12-03] MEDS ORDERED: Albuterol/Ipratropium 3ml neb HHN ONE (01:15)
[2019-12-03 03:00] VITALS: BP 119/81
[2019-12-03] MEDS ORDERED: GUAIFENESIN DM118 M1 ORAL (03:16)
[2019-12-03] MEDS ORDERED: AMOXICILLIN500 M1 PO (03:16)
[2019-12-03 03:30] VITALS: BP 123/70
[2019-12-03 03:31] LABS: APPEARANCE,URINE CLEAR; BILIRUBIN, URINE NEGATIVE (NEGATIVE); GLUCOSE, URINE (UA) NEGATIVE (NEGATIVE); KETONES,URINE 1+ (NEGATIVE); LEUKOCYTE ESTERASE ,URINE 1+ (NEGATIVE); NITRITE,URINE NEGATIVE (NEGATIVE); PH,URINE 5 (4.5-8.0); PROTEIN,URINE 1+ (NEGATIVE); UROBILINOGEN,URINE 1 MG/DL (0.0-1.0)
[2019-12-03 03:35] LABS: COLOR,URINE YELLOW
--- NOTE | 2019-12-03 04:01 | Diagnostic Imaging Report ---
EXAM: XR Chest, 1 View CLINICAL HISTORY: COUGH TECHNIQUE: Frontal view of the chest. COMPARISON: 11/07/2018 FINDINGS: Lungs: No consolidation or mass. Pleural space: No acute findings Heart: No cardiomegaly. Bones/joints: No acute findings. IMPRESSION: No acute cardiopulmonary process.
== END 2019-12-03 03:35 | disposition home or self-care (01) ==
LOC: EMR 00:50
DX: R05 Cough (principal); Z87.891 Personal history of nicotine dependence; I10 Essential (primary) hypertension
CPT/HCPCS: 71045; 81003; 81025; Z7502; 99284; J7620